=== PATIENT | female | born 1950 | race Caucasian/White ===

== ENCOUNTER → 2016-12-05 | Outpatient (CLI) | payer OTHER, BC | LOC: BHFA 11:00 | PROVIDERS: ATTEND Internal Medicine Cardiovascular Disease | DX: I49.3 Ventricular premature depolarization (principal); I77.3 Arterial fibromuscular dysplasia ==

== ENCOUNTER → 2016-12-08 | Outpatient (CLI) | payer OTHER, BC | LOC: FIMAGING 11:41 | DX: Z12.31 Encounter for screening mammogram for malignant neoplasm of breast (principal) | CPT/HCPCS: G0202 ==

== ENCOUNTER 2017-02-09 13:59 | Emergency (ER) | payer OTHER, BC ==
--- NOTE | 2017-02-09 14:30 | EDPHY ---
H & P Stated Complaint: nontraumatic l neck pain since tu/hx FMD/carotid dissection Time Seen by Provider: 02/09/17 14:22 HPI/ROS: CHIEF COMPLAINT: Neck pain HISTORY OF PRESENT ILLNESS: This is a 67-year-old female presenting to the emergency department complaining of neck pain onset 4 days ago. 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 Spoke with her specialist and was sent here for CT head and CT of the neck to rule out any new dissection. Denies any headache at this time no blurred vision no chest pain REVIEW OF SYSTEMS: Constitutional: No fever, no chills. Eyes: No discharge. ENT: No sore throat. Cardiovascular: No chest pain, no palpitations. Respiratory: No cough, no shortness of breath. Gastrointestinal: No abdominal pain, no vomiting. Genitourinary: No hematuria. Musculoskeletal: neck pain. No back pain. Skin: No rashes. Neurological: No headache. Source: Patient - Personal History Current Tetanus/Diphtheria Vaccine: Yes - Medical/Surgical History Hx Asthma: No Hx Chronic Respiratory Disease: No Hx Diabetes: No Hx Cardiac Disease: Yes Hx Renal Disease: No Hx Cirrhosis: No Hx Alcoholism: No Hx HIV/AIDS: No Hx Splenectomy or Spleen Trauma: No Other PMH: HTN, coranary spasm, SVT/carotid dissection/FMD - Social History Smoking Status: Never smoked - Physical Exam Exam: General Appearance: Alert, no distress. Eyes: PERRLA. no pallor or injection. ENT, Mouth: Mucous membranes moist. Respiratory: There are no retractions, lungs are clear to auscultation. Cardiovascular: Regular rate and rhythm. Gastrointestinal: Abdomen is soft and nontender, no masses, bowel sounds normal. Neurological: No focal deficits. Skin: Warm and dry, no rashes. Musculoskeletal: Vertebral cervical spine nontender on palpation. 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 symmetrical, full range of motion. CMS intact Psychiatric: Patient is oriented X 3, there is no agitation. Constitutional: Initial Vital Signs Temperature (C) 36.5 C 02/09/17 14:08 Heart Rate 83 02/09/17 14:08 Respiratory Rate 17 02/09/17 14:08 Blood Pressure 148/84 H 02/09/17 14:08 O2 Sat (%) 97 02/09/17 14:08 O2 Delivery Mode Room Air Allergies/Adverse Reactions: meperidine HCl [From Demerol] Allergy (Intermediate, Verified 02/09/17 14:07) Vomiting epinephrine Allergy (Verified 02/09/17 14:12) Home Medications: Medication Instructions Recorded Atorvastatin Calcium [Lipitor 10 10 mg PO HS 01/29/16 mg (*)] Lisinopril [Zestril 5 mg (*)] 5 - 10 mg PO DAILY 01/29/16 Clopidogrel Bisulfate [Plavix (*)] 75 mg PO DAILY #30 tab 01/31/16 ISOSORBIDE DINITRATE 02/09/17 Metoprolol Succinate 02/09/17 Medical Decision Making - Diagnostics Imaging Results: Imaging Impressions Head CT 02/09/17 00:00 Impression: 1. Normal CT brain without contrast. 2. Consider MRI of the brain without and with contrast enhancement, if there is continued clinical concern. Findings and recommendations discussed with Emergency Department physician, Martin Banuelos at 1603 hour, 02/09/2017. Final report concurs with initial preliminary interpretation. Neck CTA 02/09/17 14:46 Impression: 1. 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 2. No evidence of carotid or vertebral dissection, occlusion, or intraluminal thrombi. 3. Patent bilateral vertebrobasilar system. 4. No evidence of carotid atherosclerotic disease. 5. Moderate cervical spondylosis, worse at C4-C5, C5-C6, and C6-C7, with degenerative anterolisthesis at C4-C5, mild to moderate central canal stenosis, and bilateral neural foraminal stenosis. Measurement of carotid stenosis is based on the residual internal carotid diameter with [place] Symptomatic Carotid Endarterectomy Trial (NASCET) based stenosis levels. CT Angiogram of the Brain Clinical Indications: Left neck pain, fibromuscular dysplasia, previous dissections. Technique: CT angiogram of the brain and neck was performed, with the uneventful intravenous administration of 85 mL Isovue-370 contrast. Multiplanar reconstructions including 3D reconstructions performed and evaluated on [employer] workstation in order to better evaluate the [place] vessels. Images were manipulated by the radiologist at the computer workstation. Dose reduction techniques were utilized. Comparison: CT January 2016. Findings: Major vessels of the [place] are adequately displayed, demonstrating no evidence of aneurysm, vascular malformation, flow-limiting stenosis, or occlusion. Bilateral cavernous internal carotid arteries and vertebrobasilar system demonstrates no evidence of flow-limiting stenosis, aneurysm, occlusion, or dissection. Superior sagittal sinus, transverse sinuses , and major veins demonstrate no evidence of intraluminal thrombi. Impression: Negative CT angiogram of the brain. Findings and recommendations discussed with Emergency Department Nurse Practitioner, Chantell Van N.P. at 1632 hours, on February 09, 2017. Final report concurs with initial preliminary interpretation. E:amm Head CTA 02/09/17 15:08 Impression: 1. 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 2. No evidence of carotid or vertebral dissection, occlusion, or intraluminal thrombi. 3. Patent bilateral vertebrobasilar system. 4. No evidence of carotid atherosclerotic disease. 5. Moderate cervical spondylosis, worse at C4-C5, C5-C6, and C6-C7, with degenerative anterolisthesis at C4-C5, mild to moderate central canal stenosis, and bilateral neural foraminal stenosis. Measurement of carotid stenosis is based on the residual internal carotid diameter with [place] Symptomatic Carotid Endarterectomy Trial (NASCET) based stenosis levels. CT Angiogram of the Brain Clinical Indications: Left neck pain, fibromuscular dysplasia, previous dissections. Technique: CT angiogram of the brain and neck was performed, with the uneventful intravenous administration of 85 mL Isovue-370 contrast. Multiplanar reconstructions including 3D reconstructions performed and evaluated on [employer] workstation in order to better evaluate the [place] vessels. Images were manipulated by the radiologist at the computer workstation. Dose reduction techniques were utilized. Comparison: CT January 2016. Findings: Major vessels of the [place] are adequately displayed, demonstrating no evidence of aneurysm, vascular malformation, flow-limiting stenosis, or occlusion. Bilateral cavernous internal carotid arteries and vertebrobasilar system demonstrates no evidence of flow-limiting stenosis, aneurysm, occlusion, or dissection. Superior sagittal sinus, transverse sinuses , and major veins demonstrate no evidence of intraluminal thrombi. Impression: Negative CT angiogram of the brain. Findings and recommendations discussed with Emergency Department Nurse Practitioner, Chantell Van N.P. at 1632 hours, on February 09, 2017. Final report concurs with initial preliminary interpretation. E:amm ED Course/Re-evaluation: Discussed the plan of care: CBC, BMP CTA of neck with IV contrast 1630: Discussed CT angio and CT head results with Dr. Logan no acute findings 1635: Discussed results with patient. Recommend follow up with primary care next week. Discharge home---> stable, discussed discharge instructions with patient Differential Diagnosis: Other differential diagnosis considered but not limited to dissection, CVA, and subarachnoid hemorrhage - Data Points Laboratory Results: Laboratory Results 02/09/17 14:34 02/09/17 14:34 02/09/17 02/09/17 02/09/17 14:34 14:34 14:32 WBC 7.31 10^3/uL 10^3/uL (3.80-9.50) RBC 5.45 10^6/uL H 10^6/uL (4.18-5.33) Hgb 15.2 g/dL g/dL (12.6-16.3) POC Hgb 15.6 gm/dL gm/dL (12.3-15.9) Hct 46.6 % % (38.0-47.0) POC Hct 46 % % (35.5-47.5) MCV 85.5 fL fL (81.5-99.8) MCH 27.9 pg pg (27.9-34.1) MCHC 32.6 g/dL g/dL (32.4-36.7) RDW 13.3 % % (11.5-15.2) Plt Count 205 10^3/uL 10^3/uL (150-400) MPV 9.7 fL fL (8.7-11.7) Neut % (Auto) 65.4 % % (39.3-74.2) Lymph % (Auto) 21.2 % % (15.0-45.0) [place] % (Auto) 9.3 % % (4.5-13.0) Eos % (Auto) 3.1 % % (0.6-7.6) Baso % (Auto) 0.7 % % (0.3-1.7) Nucleat RBC Rel Count 0.0 % % (0.0-0.2) Absolute Neuts (auto) 4.78 10^3/uL 10^3/uL (1.70-6.50) Absolute Lymphs (auto) 1.55 10^3/uL 10^3/uL (1.00-3.00) Absolute Monos (auto) 0.68 10^3/uL 10^3/uL (0.30-0.80) Absolute Eos (auto) 0.23 10^3/uL 10^3/uL (0.03-0.40) Absolute Basos (auto) 0.05 10^3/uL 10^3/uL (0.02-0.10) Absolute Nucleated RBC 0.00 10^3/uL 10^3/uL (0-0.01) Immature Gran % 0.3 % % (0.0-1.1) Immature Gran # 0.02 10^3/uL 10^3/uL (0.00-0.10) POC Sodium 144 mEq/L mEq/L (134-144) Sodium 143 mEq/L mEq/L (134-144) POC Potassium 3.8 mEq/L mEq/L (3.3-5.0) Potassium 3.9 mEq/L mEq/L (3.5-5.2) POC Chloride 105 mEq/L mEq/L (96-108) Chloride 108 mEq/L mEq/L (97-110) Carbon Dioxide 23 mEq/l mEq/l (22-31) Anion Gap 12 mEq/L mEq/L (8-16) POC BUN 22 mg/dL mg/dL (7-23) BUN 22 mg/dL mg/dL (7-23) Creatinine 0.8 mg/dL mg/dL (0.6-1.0) POC Creatinine 0.7 mg/dL mg/dL (0.6-1.2) Estimated GFR > 60 Glucose 90 mg/dL mg/dL (70-100) POC Glucose 93 mg/dL mg/dL (70-100) Calcium 10.0 mg/dL mg/dL (8.5-10.4) Point of Care Test Results: 02/09/17 14:32 POC Sodium 144 POC Potassium 3.8 POC Chloride 105 POC BUN 22 POC Creatinine 0.7 POC Glucose 93 Departure - Departure Disposition: Home, Routine, Self-Care Clinical Impression: Neck pain Condition: Good Instructions: Acute Neck Pain (ED) Additional Instructions: Discussed discharge instructions 1. The follow up with your primary care physician next week 2. We discussed negative findings on her CT scans Referrals: Noemi Randall MD [Primary Care Provider] - As per Instructions
[2017-02-09 14:50] LABS: % IMMATURE GRANULYOCYTES 0.3 % (0.0-1.1); ABSOLUTE IMMATURE GRANULOCYTES 0.02 10^3/uL (0.00-0.10); ADD DIFF? NO; ADD MORPH? NO; ADD SCAN? NO; ATYPICAL LYMPHOCYTE FLAG 10 (0-99); FRAGMENT RBC FLAG 0 (0-99); HEMATOCRIT 46.6 % (38.0-47.0); HEMOGLOBIN 15.2 g/dL (12.6-16.3); LEFT SHIFT FLG 0 (0-99); LIPEMIA HEMOLYSIS FLAG 80 (0-99); MEAN CELL HEMOGLOBIN 27.9 pg (27.9-34.1); MEAN CELL HEMOGLOBIN CONCENTR. 32.6 g/dL (32.4-36.7); MEAN CELL VOLUME 85.5 fL (81.5-99.8); MEAN PLATELET VOLUME 9.7 fL (8.7-11.7); PLATELET CLUMPS FLAG 0 (0-99); PLATELET COUNT 205 10^3/uL (150-400); RED BLOOD CELL COUNT 5.45 10^6/uL (4.18-5.33); RED CELL DISTRIBUTION WIDTH 13.3 % (11.5-15.2)
[2017-02-09 14:58] LABS: POTASSIUM 3.9 mEq/L (3.5-5.2); SODIUM 143 mEq/L (134-144)
[2017-02-09 14:59] LABS: ANION GAP 12 mEq/L (8-16); CARBON DIOXIDE 23 mEq/l (22-31); CHLORIDE 108 mEq/L (97-110); CREATININE 0.8 mg/dL (0.6-1.0); GLOMERULAR FILTRATION RATE > 60; GLUCOSE 90 mg/dL (70-100)
[2017-02-09] MEDS ORDERED: IOPAMIDOL (ISOVUE 370) 100 ML BTL IV ONE (15:21)
[2017-02-09 17:09] VITALS: BP 146/93; PULSE 77; RESP 18; TEMP 97.9; O2SAT 95
== END 2017-02-09 17:14 | disposition home or self-care (01) ==
DX: M54.2 Cervicalgia (principal); I10 Essential (primary) hypertension
CPT/HCPCS: 70450; 70496; 70498; 99285; Q9967; 82947-QW

== ENCOUNTER → 2017-08-21 | Outpatient (CLI) | payer OTHER, BC | LOC: BHFA 11:30 | PROVIDERS: ATTEND Internal Medicine Cardiovascular Disease | DX: I47.1 Supraventricular tachycardia (principal) ==

== ENCOUNTER → 2018-04-25 | Outpatient (CLI) | payer OTHER, BC | LOC: BHFA 14:00 | PROVIDERS: ATTEND Internal Medicine Cardiovascular Disease | DX: I25.42 Coronary artery dissection (principal); I77.3 Arterial fibromuscular dysplasia; I10 Essential (primary) hypertension; I49.3 Ventricular premature depolarization; I47.1 Supraventricular tachycardia ==

== ENCOUNTER → 2018-09-04 | Outpatient (CLI) | payer OTHER, BC | LOC: BHLMT 16:15 | PROVIDERS: ATTEND Internal Medicine Interventional Cardiology | DX: I25.42 Coronary artery dissection (principal); I77.9 Disorder of arteries and arterioles, unspecified; I10 Essential (primary) hypertension; I49.3 Ventricular premature depolarization | CPT/HCPCS: 93306-PO ==

== ENCOUNTER → 2018-09-06 | Outpatient (CLI) | payer OTHER, BC | LOC: FIMAGING 09:34 | PROVIDERS: ATTEND Obstetrics & Gynecology Gynecology | DX: Z12.31 Encounter for screening mammogram for malignant neoplasm of breast (principal) ==